=== PATIENT | female | born 1995 | race Two or more races ===

== ENCOUNTER 2025-08-19 08:21 | Observation (INO) | payer MEDICAID ==
[~2025-08-19] VITALS: Ht 172.7 cm; Wt 102.1 kg
--- NOTE | 2025-08-19 13:12 | DVH ---
BIOPHYSICAL PROFILE HISTORY: GDM, PIH TECHNIQUE: Multiple transabdominal real-time grayscale sonographic images through the gravid uterus o f the fetus with duplex doppler color flow and M-mode spectral analysis FINDINGS: BIOPHYSICAL PROFILE: breathing score: 2 movement score: 2 tone score: 2 Quantitative MARILYNN score: 2 (MARILYNN: 13.9 cm.) Total score: 8/8 Single live fetus in cephalic presentation. heart rate 123 beats per minute. Posterior placenta without previa or abruption Biophysical profile score 8/8 corresponding to an YOLIS of 09/03/25 IMPRESSION: Biophysical profile score: 8/8
[2025-08-19 13:31] LABS: Hematocrit 39.0 % (36.0-46.0); Hemoglobin 13.4 g/dL (12.2-16.2); Mean Corpuscular Hemoglobin 30.9 pg (28.0-32.0); Mean Corpuscular Volume 89.9 fL (80.0-100.0); Nucleated Red Blood Cells % 0.0 %
[2025-08-19 13:34] LABS: Urine Protein, UAD Negative (Negative)
[2025-08-19 13:45] LABS: Protein, Urine < 6.0 mg/dL (1-14)
[2025-08-19 13:50] LABS: Albumin 3.8 g/dL (3.2-4.8); Alkaline Phosphatase 100 U/L (46-116); Anion Gap 10 (5-15); BUN/Creatinine Ratio 12.1 (10.0-20.0); Bilirubin, Total 0.3 mg/dL (0.2-1.0); Calcium 9.0 mg/dL (8.7-10.4); Carbon Dioxide 23 mmol/L (20-31); Glucose 77 mg/dL (74-106); INR 0.89 (0.9-1.15); Partial Thromboplastin Time 26.0 SEC (24.5-34.5); Potassium 3.6 mmol/L (3.5-5.1); Prothrombin Time 9.5 sec (9.3-11.8); Sodium 141 mmol/L (136-145); Total Protein 6.2 g/dL (5.7-8.2); Uric Acid 5.4 mg/dL (3.1-7.8)
[2025-08-19 13:52] LABS: Amphetamine Screen, Urine Neg (NEGATIVE); Barbiturate Scree,Urine Neg (NEGATIVE); Benzodiazephine Screen, Urine Neg (NEGATIVE); Cannabinoid Screen, Urine Neg (NEGATIVE); Cocaine Screen, Urine Neg (NEGATIVE); Opiate Scree,Urine Neg (NEGATIVE); Phencyclidine Screen, Urine Neg (NEGATIVE)
[2025-08-19 13:53] LABS: Alanine Aminotransferase < 9 U/L (7-40); Blood Urea Nitrogen 7 mg/dL (9-23); Chloride 108 mmol/L (98-107)
[2025-08-19] MEDS ORDERED: METF-370 PO (13:59)
[2025-08-19] MEDS ORDERED: PREN-129 OR (14:00)
[2025-08-19] MEDS ORDERED: LABE200T9 PO (14:00)
--- NOTE | 2025-08-19 14:52 | DVHDS2 ---
Physician Discharge Progress N Final Diagnosis: gdma2,[id number] Operations or Procedures: Operations or Procedures nst reactive reviwed,sono Condition on Discharge: Good Disposition: Home Discharge Instructions: Diet: Cardiac 2g Na,low cholest Activity: No Restrictions, As Tolerated Medications: na Follow Up Care: Specialist: 2d Discharge Statement: "Patient was advised to return to the ER or call 911 if any headaches, dizziness, shortness of breath, chest pain, abdominal pain, bleeding, fevers, or worsening of medical condition. Patient was counseled about treatment plan, medications, possible side effects, patientverbalized understanding. All questions were answered to the best of my ability. This discharge took greater then 30 minutes in planning, reviewing documentation, counseling the patient, and discussing with other team members." Visit Coding OBGYN Date of Service: Aug 19, 2025 Billing Provider: CAITIE KINGSTON DO IRON HANDLER Common Visit Codes: 55477-QKHOXTK OBS CARE (HIGH) IRON HANDLER Procedure Codes: 25674-51- NON-STRESS TEST CAITIE KINGSTON DO Aug 19, 2025 14:52
== END 2025-08-19 14:07 | disposition home or self-care (01) ==
LOC: LDRP 11:45 → UNDOADMOB 11:45 → LDRP 11:49
PROVIDERS: ADMIT Obstetrics & Gynecology; ATTEND Obstetrics & Gynecology
DX: O24.419 Gestational diabetes mellitus in pregnancy, unspecified control (principal); R79.1 Abnormal coagulation profile; Z3A.38 38 weeks gestation of pregnancy; Z98.890 Other specified postprocedural states; Z79.899 Other long term (current) drug therapy
CPT/HCPCS: 36415; 59025; 76819; 80053; 80307; 81001; 81002; 82570; 82948; 82962; 83036; 83615; 84156; 84550; 85025; 85610; 85730; 86780; 86850; 86900; 86901; 94760; G0378

== ENCOUNTER 2025-08-22 09:58 | Observation (INO) | payer MEDICAID ==
[~2025-08-22 09:58] MED LIST: LABE200T9 PO; METF-370 PO; PREN-129 OR
--- NOTE | 2025-08-22 10:54 | DVH ---
BIOPHYSICAL PROFILE HISTORY: PIH TECHNIQUE: Multiple real-time grayscale sonographic images through the gravid uterus of the fetus wi th duplex Doppler color flow. FINDINGS: BIOPHYSICAL PROFILE: breathing score: 2 movement score: 2 tone score: 2 Quantitative MARILYNN score: 2 Total score: 8 out of 8 Single live intrauterine . Placenta posteriorly positioned. lie cephalic. hear t rate 148 beats per minute. IMPRESSION: Biophysical profile score: 8 out of 8
== END 2025-08-22 11:40 | disposition home or self-care (01) ==
LOC: LDRP 09:58
PROVIDERS: ADMIT Obstetrics & Gynecology; ATTEND Obstetrics & Gynecology
DX: O13.3 Gestational [pregnancy-induced] hypertension without significant proteinuria, third trimester (principal); O24.419 Gestational diabetes mellitus in pregnancy, unspecified control; Z3A.37 37 weeks gestation of pregnancy; Z98.890 Other specified postprocedural states
CPT/HCPCS: 59025; 76819; 81002; 82948; 94760; G0378

== ENCOUNTER 2025-08-23 05:00 | Inpatient (IN) | payer MEDICAID ==
[2025-08-22 11:10] LABS: Hematocrit 37.7 % (36.0-46.0); Hemoglobin 13.0 g/dL (12.2-16.2); Mean Corpuscular Hemoglobin 31.0 pg (28.0-32.0); Mean Corpuscular Volume 90.4 fL (80.0-100.0); Nucleated Red Blood Cells % 0.0 %
[2025-08-22 11:27] LABS: Alanine Aminotransferase 11 U/L (7-40); Albumin 3.7 g/dL (3.2-4.8); Alkaline Phosphatase 95 U/L (46-116); Anion Gap 11 (5-15); BUN/Creatinine Ratio 14.3 (10.0-20.0); Carbon Dioxide 21 mmol/L (20-31); Glucose 100 mg/dL (74-106); Potassium 3.6 mmol/L (3.5-5.1); Sodium 140 mmol/L (136-145); Total Protein 6.0 g/dL (5.7-8.2)
[2025-08-22 11:28] LABS: Bilirubin, Total 0.3 mg/dL (0.2-1.0)
[2025-08-22 11:42] LABS: Amphetamine Screen, Urine Neg (NEGATIVE); Barbiturate Scree,Urine Neg (NEGATIVE); Benzodiazephine Screen, Urine Neg (NEGATIVE); Blood Urea Nitrogen 9 mg/dL (9-23); Calcium 8.4 mg/dL (8.7-10.4); Cannabinoid Screen, Urine Neg (NEGATIVE); Chloride 108 mmol/L (98-107); Cocaine Screen, Urine Neg (NEGATIVE); Opiate Scree,Urine Neg (NEGATIVE); Phencyclidine Screen, Urine Neg (NEGATIVE); Urine Protein, UAD 1+ (Negative)
[2025-08-22 11:48] LABS: INR 0.92 (0.9-1.15); Partial Thromboplastin Time 27.3 SEC (24.5-34.5); Prothrombin Time 9.8 sec (9.3-11.8)
--- NOTE | 2025-08-22 16:33 | DVHDS2 ---
Discharge Summary Date of Admission 08/22/2025 discharge 08/22/2025 outpatient Date of Discharge: Aug 22, 2025 Admitting Diagnosis Scheduled NST BPP -induced hypertension gestational diabetes A 2 39+ week Wounds: None Labs/Diagnostic Data: Laboratory Results Test 08/22/25 10:55 White Blood Count 8.2 10^3/uL (4.4-10.8) Red Blood Count 4.17 10^6/uL (4.0-5.20) Hemoglobin 13.0 g/dL (12.2-16.2) Hematocrit 37.7 % (36.0-46.0) Mean Corpuscular Volume 90.4 fL (80.0-100.0) Mean Corpuscular Hemoglobin 31.0 pg (28.0-32.0) Mean Corpuscular Hemoglobin Concent 34.4 g/dL (32.0-36.0) Red Cell Distribution Width 13.8 % (11.8-14.3) Platelet Count 229 10^3/uL (140-450) Mean Platelet Volume 7.9 fL (6.9-10.8) Neutrophils (%) (Auto) 78.1 % (37.0-80.0) Lymphocytes (%) (Auto) 16.3 % (10.0-50.0) Monocytes (%) (Auto) 5.0 % (0.0-12.0) Eosinophils (%) (Auto) 0.3 % (0.0-7.0) Basophils (%) (Auto) 0.3 % (0.0-2.0) Neutrophils # (Auto) 6.4 10 ^3/uL (1.6-8.6) Lymphocytes # (Auto) 1.3 10 ^3/uL (0.4-5.4) Monocytes # (Auto) 0.4 10 ^3/uL (0-1.3) Eosinophils # (Auto) 0 10 ^3/uL (0-0.8) Basophils # (Auto) 0 10 ^3/uL (0-0.2) Nucleated Red Blood Cells 0.0 % Prothrombin Time 9.8 sec (9.3-11.8) Prothrombin Time INR 0.92 (0.9-1.15) Activated Partial Thromboplast Time 27.3 SEC (24.5-34.5) Urine Color Yellow (Yellow) Urine Clarity Turbid (Clear) Urine pH 6.5 (5.0-9.0) Urine Specific [place] 1.028 (1.001-1.035) Urine Protein 1+ (Negative) Urine Ketones Negative (Negative) Urine Blood Negative /uL (Negative) Urine Nitrite Negative (Negative) Urine Bilirubin Negative (Negative) Urine Urobilinogen Normal mg/dL (Negative) Urine Leukocyte Esterase Negative /uL (Negative) Urine RBC 1 /hpf (0 - 4) Urine Microscopic WBC 6 /HPF (0-5) Urine Squamous Epithelial Cells Mod /hpf (<5) Urine Bacteria None seen /hpf (None Seen) Urine Mucus Few (None Seen) Urine Glucose Normal mg/dL (Normal) Sodium Level 140 mmol/L (136-145) Potassium Level 3.6 mmol/L (3.5-5.1) Chloride Level 108 mmol/L (98-107) Carbon Dioxide Level 21 mmol/L (20-31) Anion Gap 11 (5-15) Blood Urea Nitrogen 9 mg/dL (9-23) Creatinine 0.63 mg/dL (0.550-1.02) Glomerular Filtration Rate Calc 122 mL/min (>90) BUN/Creatinine Ratio 14.3 (10.0-20.0) Serum Glucose 100 mg/dL (74-106) Calcium Level 8.4 mg/dL (8.7-10.4) Total Bilirubin 0.3 mg/dL (0.2-1.0) Aspartate Amino Transferase (AST) 14 U/L (13-40) Alanine Aminotransferase (ALT) 11 U/L (7-40) Alkaline Phosphatase 95 U/L (46-116) Total Protein 6.0 g/dL (5.7-8.2) Albumin 3.7 g/dL (3.2-4.8) Urine Opiates Screen Neg (NEGATIVE) Urine Fentanyl Screen Neg (NEGATIVE) Urine Barbiturates Screen Neg (NEGATIVE) Urine Phencyclidine Screen Neg (NEGATIVE) Urine Amphetamines Screen Neg (NEGATIVE) Urine Benzodiazepines Screen Neg (NEGATIVE) Urine Cocaine Screen Neg (NEGATIVE) Urine Cannabinoids Screen Neg (NEGATIVE) Treponema pallidum Antibody Non-reactive (Negative) Other Laboratory Tests 08/22/25 10:55 Brief Hx & Hospital Course: Patient seen as outpatient for NST which was performed as well biophysical profile both reassuring, and blood sugars reassuring Consults/Reason for consult None Operations or Procedures None Condition at Discharge: Good Final Diagnosis/Problems List 39 went PH GDM A2 Discharge Disposition: Home Discharge Instruct/Medications Diet: Consistent carbohydrate Activity: Light activity (Pelvic rest kick counts labor precautions diabetic precautions) Follow Up/Referral: As scheduled for routine PH GDM scheduled monitoring Scheduled Metformin Hydrochloride (Metformin Hcl), 500 MG PO DAILY, (Reported) Miscellaneous Medications Labetalol HCl (Labetalol Hydrochloride), 200 MG PO, (Reported) Vit W/ Ferrous Fumara (), 1 OR, (Reported) Discharge Statement: "Patient was advised to return to the ER or call 911 if any headaches, dizziness, shortness of breath, chest pain, abdominal pain, bleeding, fevers, or worsening of medical condition. Patient was counseled about treatment plan, medications, possible side effects, patientverbalized understanding. All questions were answered to the best of my ability. This discharge took greater then 30 minutes in planning, reviewing documentation, counseling the patient, and discussing with other team members." ASSESSMENT ASSESSMENT Assessment Visit Coding OBGYN Date of Service: Aug 22, 2025 Billing Provider: ANNA KEMP DO BAND SAWMILL OPERATOR Common Visit Codes: 31689-SRJ/OBS SAME DATE (LOW), 21217-FPO/OBS SAME DATE (MOD) BAND SAWMILL OPERATOR Procedure Codes: 39248-55- NON-STRESS TEST ANNA KEMP DO Aug 22, 2025 16:33
[2025-08-23] VITALS (10 sets, daily range): BP systolic 111–137; BP diastolic 61–87; PULSE 51–79; RESP 13–18; TEMP 98–98.3; O2SAT 95–99
[~2025-08-23] VITALS: Ht 172.7 cm; Wt 91.6 kg
--- NOTE | 2025-08-23 07:53 | DVHHP2 ---
OB CC & HPI Date Date of Admission: Aug 23, 2025 Patient Identification: : 4 Para: 3 EDC: Aug 23, 2025 Past Medical History Cardiac: No pertinent Hx Pulmonary: No pertinent Hx Central Nervous System: No pertinent Hx GI: No pertinent Hx Hemotology/Oncology: No pertinent Hx Hepatobiliary: No pertinent Hx Psychiatric: No pertinent Hx Musculoskeletal: No pertinent Hx Rheumotologic: No pertinent Hx Infectious Disease: No peritnent Hx ENT: No pertinent Hx Renal/: No pertinent Hx Endocrine: No pertinent Hx Dermatology: No pertinent Hx Past Surgical History: OB History OB History Care: Good Care Ultrasounds: Normal mid trimester US Obstetrical Complications: None Medical Complications: None Allergies: Coded Allergies: NO KNOWN ALLERGIES (Unverified , 08/19/25) Home Meds Reported Medications Vit W/ Ferrous Fumara () Tab, 1 OR, TAB 08/19/25 Labetalol HCl (Labetalol Hydrochloride) 200 Mg Tab, 200 MG PO, TAB 08/19/25 Metformin Hydrochloride (Metformin Hcl) 500 Mg Tab, 500 MG PO DAILY for 30 Days, MG 08/19/25 Current Medications Current Medications Medications (Trade) Dose Ordered Sig/Meghana Route PRN Reason Start Time Stop Time Status Last Admin Lactated Ringer's 1,000 ml @ 125 mls/hr Q8H IV 08/23/25 05:15 Family & Social History Family/Social History Blood Type: A+ Rubella: immune RPR/VDRL: Negative GBS Status: Negative HBsAG: Negative Review of Systems Constitutional: No symptom reported Ears, Nose, & Throat: No symptom reported Eyes: No symptom reported Pulmonary/Respiratory: No symptom reported Cardiovascular: No symptom reported Gastrointestinal: No symptom reported Genitourinary: No symptom reported Musculoskeletal: No symptom reported Skin: No symptom reported Psychiatric: No symptom reported Endocrine: No symptom reported Hemotologic/Lymphatic: No symptom reported OB Admission Exam Physical Exam HEENT: TMs Normal, Fontanelles Normal, Nasal Mucosa Normal, Eyes non-injected, Oropharynx Normal, PERRLA, Moist Membranes, EOMI Heart: Rhythm Normal Lungs: Clear Abdomen: Gravid Extremities: Normal Reflexes: Normal Cervical Dilatation: None Membranes: Intact Heart Rate: 140's Accelerations: Accelerations Present Short Term Variability: Present Prison Variability: Average (6-25) Contractions on Admission: None Intensity: Mild OB Plan Plan Admitting Diagnosis: REPEAT W/ BTL Plan: Section (Ligation) Visit Coding OBGYN Date of Service: Aug 23, 2025 Billing Provider: ANNA KEMP DO INTERVIEWING CLERK Common Visit Codes: 55100-KXZ/OBS DISCH DAY <30MIN INTERVIEWING CLERK Consultation Codes: 93244-J/U INPATIENT CONSULT (LOW) INTERVIEWING CLERK Procedure Codes: 97349-BDLVT OB CARE,VAG DELIVERY, 43992-BGDB W TOTAL OB CARE, 22920-VZLTGJ W/C-SEC TOT OB CA ANNA KEMP DO Aug 23, 2025 07:53
--- NOTE | 2025-08-23 08:19 | DVHOP2 ---
Operative Report - 2 Report Details Date: 08/23/25 Preop Diagnosis: same Postop Diagnosis: 39 previous C/Sx3 GDM A2 Surgeon: Riley Kemp Anesthesiologist: Rika howard MD spinal anesthesia Anesthesia: Regional Drains: Echeverria Implant: none Consent: The patient was informed of the risks and benefits of the procedure. These include but are not limited to complications of anesthesia, postoperative infection, incomplete relief of symptoms, recurrence of symptoms, damage to blood vessels, nerves and tendons, deep venous thrombosis, pulmonary embolism and possible need for repeat surgery in the future. Complications: none Estimated Blood Loss: 300cc Findings: Infant vigorous crying tone 9/9 Indications for Surgery: Patient desires tubal ligation as well as elective section Name of Procedure Performed None Procedure Details Procedure Details: Patient states the operating placed in sitting position spinal plus the difficulty she has in place left little toe prepped history of fascia low Pfannenstiel incision made through old scar carried through the rectus fascia in the midline carried laterally rectus muscles were per midline. Number id entified and intervals sharp dissection vesical peritoneum was taken off lower uterine segment a low uterine transverse incision made with scalpel then hour glassing cramp membranes are ruptured hemostat clear fluid infant to be vertex position 1/2 plates lower uterine segment and has essentially delivered spontaneously nose mouth obstructive chosen torsion delivery without difficulty. 62nd delayed cord clamp was performed cord clamped and infant handed off to waiting respiratory and OB nurses. Blood sample taken placenta removed uterus exteriorized cleared of all clots and debris and closed with double layer of 2-0 Vicryl. It complete hemostasis at this point EBL 650: Findings mild scar tissue normal tubes ovaries uterus and pelvic anatomy. Uterus placed into the pelvis after clearing the cul-de-sac as well as right and left gutter of all clots and debris; we copiously irrigated; Janet clamp placed in the ampullary region of the right tube 2 0 Vicryl ligatures were used to tie pedicle x2 ampullary region section of the tube removed and sent to pathology. The pedicles were then bovied in the exact same procedure performed on the alternate right side instruments sponge count correct x1. Peritoneum) continues to 0 Vicryl rectus fascia closed with a running continuous 0 PDS can prescribe fascia approximated with 2-0 chromic and the skin was closed with a 3-0 Prolene on a Axel needle benzoin Steri-Strips placed ABD and pressure dressing placed uterus firm patient was frog-leg then the vagina was cleared of all clots and debris no abnormal active bleeding noted. taken to PACU recovery in stable condition with guarded infant transferred to nursery. Specimen: Umbilical blood sample, right and left fallopian tube segment ampullary region Condition Good Disposition Home ANNA KEMP DO Aug 23, 2025 08:19
[2025-08-23] MEDS ORDERED: ONDANSETRON HCL 4 MG/2 ML VIAL IV PRN ×3 (08:30→15:00)
[2025-08-23] MEDS ORDERED: LACTATED RINGER'S 1,000 ML IV SCH (08:30)
[2025-08-23] MEDS: NS/OXYTOCIN 20UNITS 1,000 ML IV SCH (08:30)
[2025-08-23] MEDS ORDERED: MORPHINE SULFATE 4 MG/ML SYR/VIAL IV PRN (08:30)
[2025-08-23] MEDS ORDERED: ceFAZolin 1GM/50ML 50 ML IV SCH (08:30)
[2025-08-23] MEDS: LACTATED RINGER'S 1,000 ML IV ONE (08:58)
[2025-08-23] MEDS: LACTATED RINGER'S 1,000 ML IV SCH (08:58)
[2025-08-23] MEDS ORDERED: fentaNYL CITRATE 100 MCG/2 ML VL ONE (12:23)
[2025-08-23] MEDS ORDERED: GLYCOPYRROLATE 0.2 MG/ML 1ML VIAL ONE (12:23)
[2025-08-23] MEDS ORDERED: KETOROLAC TROMETH 30 MG/ML 1ML VIAL ONE (12:23)
[2025-08-23] MEDS ORDERED: MORPHINE SULF PF 5 MG/10 ML VIAL ONE (12:23)
[2025-08-23] MEDS ORDERED: ONDANSETRON HCL 4 MG/2 ML VIAL ONE (12:23)
[2025-08-23] MEDS ORDERED: BUPIVACAINE/DEXTROSE MPF 0.75% 2 ML AMP IT ONE (12:27)
[2025-08-23] MEDS: ceFAZolin 2 GM/D5W50ml 50 ML IV ONE (14:34)
[2025-08-23] MEDS: GELATIN 1 SPONGE SIZE 100 TOP ONE (14:34)
[2025-08-23] MEDS ORDERED: diphenhydrAMINE HCL 50 MG/1 ML VL IV PRN (15:00)
[2025-08-23] MEDS ORDERED: ACETAMINOPHEN IV 1000 MG/100ML (10MG/ML) IV ONE (15:00)
[2025-08-23] MEDS ORDERED: NALOXONE HCL 0.4 MG/ML VIAL IV PRN (15:00)
[2025-08-23] MEDS: ACETAMINOPHEN IV 1000 MG/100ML (10MG/ML) IV PRN (18:33)
[2025-08-23] MEDS: ceFAZolin 1GM/50ML 50 ML IV SCH (22:17)
[2025-08-23] MEDS: LABETALOL HCL 200 MG TAB PO SCH (22:17)
[2025-08-24] VITALS (15 sets, daily range): BP systolic 105–123; BP diastolic 61–83; PULSE 52–92; RESP 17–18; TEMP 97.7–98.6; O2SAT 94–98
[2025-08-24] MEDS: KETOROLAC TROMETH 30 MG/ML 1ML VIAL IV PRN (02:56)
--- NOTE | 2025-08-24 05:58 | DVHPN2 ---
Chief Complaints Patient reports: No new complaints Nursing reports: No new complaints, No abdominal pain, No chest pain, No dizziness, No cough Objective Vitals Vital Signs Date Time Temp Pulse Resp B/P (MAP) Pulse Ox O2 Delivery O2 Flow Rate FiO2 08/24/25 05:15 60 117/69 08/24/25 05:00 17 97 08/24/25 03:00 98.1 98.1 08/23/25 19:00 Room Air Medications Current Medications Medications (Trade) Dose Ordered Sig/Meghana Route PRN Reason Start Time Stop Time Status Last Admin Acetaminophen (Ofirmev) 1,000 mg Q8HP PRN IV PAIN SCALE 1-3 OR TEMP>100.4 08/23/25 16:30 08/24/25 14:01 08/23/25 18:33 Cefazolin Sodium 50 ml @ 100 mls/hr Q8H IV 08/23/25 22:30 08/24/25 14:59 08/24/25 05:16 Diphenhydramine HCl (Benadryl Injection) 25 mg Q4HP PRN IV FOR ITCHING 08/23/25 15:00 Ketorolac Tromethamine (Toradol Injection) 30 mg Q6HP PRN IV MODERATE PAIN (4-6 PAIN SCALE) 08/23/25 15:00 08/28/25 14:59 08/24/25 02:56 Labetalol HCl (Normodyne Tablet) 300 mg TID PO 08/23/25 22:00 08/24/25 05:15 Lactated Ringer's 1,000 ml @ 125 mls/hr Q8H IV 08/23/25 08:30 UNV Morphine Sulfate 2 mg Q4HP PRN IV SEVERE PAIN (7-10 PAIN SCALE) 08/23/25 08:30 Ondansetron HCl (Zofran) 4 mg Q4HP PRN IV NAUSEA / VOMITING 08/23/25 08:30 Cancel Ondansetron HCl (Zofran) 4 mg Q4HP PRN IV NAUSEA / VOMITING 08/23/25 15:00 Oxytocin 1,000 ml @ 125 mls/hr Q8H IV 08/23/25 08:30 General: Normal Lungs: Normal Cardiovascular: Normal Abdominal: Normal (Wound clean dry intact uterus 12 firm) Extremities: Normal Skin: Normal Neurological: Normal Studies Laboratory Tests 08/22/25 10:55 Test 08/22/25 10:55 Range/Units Serum Glucose 100 74-106 mg/dL Ass/Plan Assessment Postop day 1 section we will stable improved. Plan Advanced care she was ANNA KEMP DO Aug 24, 2025 05:58
[2025-08-24 06:37] LABS: Hematocrit 33.5 % (36.0-46.0); Hemoglobin 11.4 g/dL (12.2-16.2); Mean Corpuscular Hemoglobin 30.8 pg (28.0-32.0); Mean Corpuscular Volume 90.1 fL (80.0-100.0); Nucleated Red Blood Cells % 0.0 %
[2025-08-24] MEDS ORDERED: HYDROcodone-ACET 5/325MG TAB PO PRN (10:30)
[2025-08-24] MEDS ORDERED: BISACODYL 10 MG RECT SUPP PR PRN (10:30)
[2025-08-24] MEDS: HYDROcodone-ACET 5/325MG TAB PO PRN (10:49)
[2025-08-24] MEDS ORDERED: IBUP-1456 PO (12:31)
[2025-08-24] MEDS ORDERED: DOCU-94 PO (12:31)
[2025-08-24] MEDS ORDERED: HYDR-4072 PO (12:31)
[2025-08-24] MEDS: SIMETHICONE 80 MG CHEWABLE TABLET PO SCH (12:48)
[2025-08-24] MEDS: DOCUSATE SOD 100 MG CAP PO SCH (21:26)
[2025-08-24] MEDS: LABETALOL HCL 200 MG TAB PO SCH (21:27)
[2025-08-24] MEDS: IBUPROFEN 800 MG TAB PO PRN (21:38)
[2025-08-25 03:25] VITALS: BP 109/68; PULSE 79; RESP 18; TEMP 97.8; O2SAT 98
--- NOTE | 2025-08-25 06:03 | DVHDS2 ---
Discharge Summary Date of Admission Aug 23, 2025 at 05:00 Date of Discharge: Aug 22, 2025 Admitting Diagnosis prev section Wounds: clean dry intact Labs/Diagnostic Data: Laboratory Results Test 08/24/25 05:48 08/23/25 13:11 08/22/25 10:55 White Blood Count 19.6 10^3/uL (4.4-10.8) Red Blood Count 3.72 10^6/uL (4.0-5.20) Hemoglobin 11.4 g/dL (12.2-16.2) Hematocrit 33.5 % (36.0-46.0) Mean Corpuscular Volume 90.1 fL (80.0-100.0) Mean Corpuscular Hemoglobin 30.8 pg (28.0-32.0) Mean Corpuscular Hemoglobin Concent 34.1 g/dL (32.0-36.0) Red Cell Distribution Width 13.6 % (11.8-14.3) Platelet Count 238 10^3/uL (140-450) Mean Platelet Volume 8.1 fL (6.9-10.8) Neutrophils (%) (Auto) 87.0 % (37.0-80.0) Lymphocytes (%) (Auto) 9.0 % (10.0-50.0) Monocytes (%) (Auto) 3.9 % (0.0-12.0) Eosinophils (%) (Auto) 0.0 % (0.0-7.0) Basophils (%) (Auto) 0.1 % (0.0-2.0) Neutrophils # (Auto) 17.0 10 ^3/uL (1.6-8.6) Lymphocytes # (Auto) 1.8 10 ^3/uL (0.4-5.4) Monocytes # (Auto) 0.8 10 ^3/uL (0-1.3) Eosinophils # (Auto) 0 10 ^3/uL (0-0.8) Basophils # (Auto) 0 10 ^3/uL (0-0.2) Nucleated Red Blood Cells 0.0 % POC Glucose 79 mg/dl (70-106) Prothrombin Time 9.8 sec (9.3-11.8) Prothrombin Time INR 0.92 (0.9-1.15) Activated Partial Thromboplast Time 27.3 SEC (24.5-34.5) Urine Color Yellow (Yellow) Urine Clarity Turbid (Clear) Urine pH 6.5 (5.0-9.0) Urine Specific [place] 1.028 (1.001-1.035) Urine Protein 1+ (Negative) Urine Ketones Negative (Negative) Urine Blood Negative /uL (Negative) Urine Nitrite Negative (Negative) Urine Bilirubin Negative (Negative) Urine Urobilinogen Normal mg/dL (Negative) Urine Leukocyte Esterase Negative /uL (Negative) Urine RBC 1 /hpf (0 - 4) Urine Microscopic WBC 6 /HPF (0-5) Urine Squamous Epithelial Cells Mod /hpf (<5) Urine Bacteria None seen /hpf (None Seen) Urine Mucus Few (None Seen) Urine Glucose Normal mg/dL (Normal) Sodium Level 140 mmol/L (136-145) Potassium Level 3.6 mmol/L (3.5-5.1) Chloride Level 108 mmol/L (98-107) Carbon Dioxide Level 21 mmol/L (20-31) Anion Gap 11 (5-15) Blood Urea Nitrogen 9 mg/dL (9-23) Creatinine 0.63 mg/dL (0.550-1.02) Glomerular Filtration Rate Calc 122 mL/min (>90) BUN/Creatinine Ratio 14.3 (10.0-20.0) Serum Glucose 100 mg/dL (74-106) Calcium Level 8.4 mg/dL (8.7-10.4) Total Bilirubin 0.3 mg/dL (0.2-1.0) Aspartate Amino Transferase (AST) 14 U/L (13-40) Alanine Aminotransferase (ALT) 11 U/L (7-40) Alkaline Phosphatase 95 U/L (46-116) Total Protein 6.0 g/dL (5.7-8.2) Albumin 3.7 g/dL (3.2-4.8) Urine Opiates Screen Neg (NEGATIVE) Urine Fentanyl Screen Neg (NEGATIVE) Urine Barbiturates Screen Neg (NEGATIVE) Urine Phencyclidine Screen Neg (NEGATIVE) Urine Amphetamines Screen Neg (NEGATIVE) Urine Benzodiazepines Screen Neg (NEGATIVE) Urine Cocaine Screen Neg (NEGATIVE) Urine Cannabinoids Screen Neg (NEGATIVE) Treponema pallidum Antibody Non-reactive (Negative) Hepatitis C Antibody Negative (Negative) Other Laboratory Tests 08/24/25 05:48 08/22/25 10:55 Brief Hx & Hospital Course: Patient seen as outpatient for NST which was performed as well biophysical profile both reassuring, and blood sugars reassuring Consults/Reason for consult none Operations or Procedures Condition at Discharge: Good Final Diagnosis/Problems List 39 previous C/Sx3 GDM A2 Discharge Disposition: Home Discharge Instruct/Medications Diet: Consistent carbohydrate Activity: Light activity (Pelvic rest kick counts labor precautions diabetic precautions) Follow Up/Referral: As scheduled for routine PH GDM scheduled monitoring Medications: Dr. Downey we will send meds for home Scheduled Docusate Sodium (Colace), 1 CAP PO BID Metformin Hydrochloride (Metformin Hcl), 500 MG PO DAILY, (Reported) Scheduled PRN Hydrocodone-Acetaminophen (Hydrocodone/Acetaminophen 10-325 mg), 1 TAB PO Q6HPRN PRN Ibuprofen (Ibuprofen), 800 MG PO TID PRN Miscellaneous Medications Labetalol HCl (Labetalol Hydrochloride), 200 MG PO, (Reported) Vit W/ Ferrous Fumara (), 1 OR, (Reported) Discharge Statement: "Patient was advised to return to the ER or call 911 if any headaches, dizziness, shortness of breath, chest pain, abdominal pain, bleeding, fevers, or worsening of medical condition. Patient was counseled about treatment plan, medications, possible side effects, patientverbalized understanding. All questions were answered to the best of my ability. This discharge took greater then 30 minutes in planning, reviewing documentation, counseling the patient, and discussing with other team members." ASSESSMENT ASSESSMENT Hospital Course Patient seen as outpatient for NST which was performed as well biophysical profile both reassuring, and blood sugars reassuring Assessment 39 previous C/Sx3 GDM A2 Visit Coding OBGYN Date of Service: Aug 25, 2025 Billing Provider: ANNA KEMP DO FINANCIAL SALES PROFESSIONAL Common Visit Codes: 98334-NSK/OBS SAME DATE (LOW), 79535-BZP/OBS SAME DATE (MOD), 56269-XQU/OBS SAME DATE (HIGH) FINANCIAL SALES PROFESSIONAL Procedure Codes: 77846-KEPTW OB CARE, DEL ANNA KEMP DO Aug 25, 2025 06:03
[2025-08-25 06:52] VITALS: BP 111/61; PULSE 88; RESP 16; TEMP 98.6; O2SAT 97
[2025-08-25 10:31] VITALS: BP 116/82; PULSE 79; RESP 18; TEMP 98.2; O2SAT 98
== END 2025-08-25 10:31 | disposition home or self-care (01) | DRG 539 ==
LOC: LDRP 05:00
PROVIDERS: ADMIT Obstetrics & Gynecology; ATTEND Obstetrics & Gynecology
PROC: 10D00Z1 Extraction of Products of Conception, Low, Open Approach (ICD-10-PCS; 2025-08-23)
PROC: 0UB70ZZ Excision of Bilateral Fallopian Tubes, Open Approach (ICD-10-PCS; principal; 2025-08-23 13:24)
DX: O34.211 Maternal care for low transverse scar from previous cesarean delivery (principal); O13.4 Gestational [pregnancy-induced] hypertension without significant proteinuria, complicating childbirth; O24.429 Gestational diabetes mellitus in childbirth, unspecified control; Z30.2 Encounter for sterilization; Z37.0 Single live birth; Z3A.39 39 weeks gestation of pregnancy
CPT/HCPCS: 36415; 59025; 80053; 80307; 81001; 82962; 85025; 85610; 85730; 86780; 86803; 86850; 86900; 86901; 94760; 94762; 96360; 96361; 96366; 96374; G0378; J0131; J1885; J2405